=== PATIENT | male | born 1965 ===

== ENCOUNTER 2017-09-29 18:30 | Emergency (ER) | payer OTHER ==
[2017-09-29] MEDS ORDERED: Alum-Mag Hydrox-Simethicone Susp (30 mL) PO STA (18:46)
[2017-09-29] MEDS ORDERED: Alum-Mag Hydrox-Simethicone Susp (30 mL) ONE (18:51)
[2017-09-29] MEDS ORDERED: Sodium Chloride 0.9% 1,000 ML IV STA (19:08)
[2017-09-29 19:13] LABS: BASO % 0.3 % (0.0-2.0); EOS % 0.4 % (0.0-4.0); HEMOGLOBIN 17.4 g/dL (12.0-18.0); LYMPH # 0.7 K/uL (1.0-4.3); MEAN CELL VOLUME 87.5 fl (80.0-94.0); MEAN CORPUSCULAR HEMOGLOBIN 30.5 pg (27.0-31.0); MEAN CORPUSCULAR HGB CONC 34.9 g/dL (33.0-37.0); MEAN PLATELET VOLUME 6.7 fl (7.2-11.7); MONO # 0.6 K/uL (0.0-0.8); MONO % 6.2 % (0.0-10.0); NEUT # 8.6 K/uL (1.8-7.0); NEUT % 86.1 % (50.0-75.0); NRBC % 0.8 % (0.0-0.0); PLATELET COUNT 207 K/uL (130-400); RBC 5.71 Mil/uL (4.40-5.90); RED CELL DISTRIBUTION WIDTH 13.2 % (11.5-14.5)
--- NOTE | 2017-09-29 19:17 | ED PDOC ---
HPI: Abdomen Time Seen by Provider: 09/29/17 18:35 Chief Complaint (Nursing): Abdominal Pain Chief Complaint (Provider): Epigastric pain History Per: Patient History/Exam Limitations: no limitations Onset/Duration Of Symptoms: Days Outside of [place] travel?: No Current Symptoms Are (Timing): Still Present Location Of Pain/Discomfort: Epigastric Quality Of Discomfort: Sharp, Burning Associated Symptoms: Fever (Last night, no temperature taken at home ), Loss Of Appetite. denies: Constipation, Urinary Symptoms Exacerbating Factors: None Alleviating Factors: None Last Bowel Movement: Today Additional Complaint(s): No similar in the past. No chest pain. No SOB. Past Medical History Reviewed: Historical Data, Nursing Documentation, Vital Signs Vital Signs: Last Vital Signs Temp 100.4 F H 09/29/17 19:40 Pulse 99 H 09/29/17 19:21 Resp 16 09/29/17 19:21 BP 146/95 H 09/29/17 19:21 Pulse Ox 95 09/29/17 19:21 - Medical History PMH: No Chronic Diseases - Surgical History Surgical History: No Surg Hx - Family History Family History: States: No Known Family Hx - Living Arrangements Living Arrangements: With Family - Allergies Allergies/Adverse Reactions: Allergies Allergy/AdvReac Type Severity Reaction Status Date / Time No Known Allergies Allergy Verified 08/27/14 03:09 Review of Systems ROS Statement: Except As Marked, All Systems Reviewed And Found Negative Constitutional: Positive for: Fever (Last night, did not take temperature ). Negative for: Chills Gastrointestinal: Positive for: Nausea, Vomiting, Abdominal Pain Genitourinary Male: Negative for: Dysuria, Hematuria, Penile Discharge Physical Exam - Reviewed Nursing Documentation Reviewed: Yes Vital Signs Reviewed: Yes - Physical Exam Appears: Positive for: Well, Non-toxic, No Acute Distress Head Exam: Positive for: ATRAUMATIC, NORMAL INSPECTION, NORMOCEPHALIC Skin: Positive for: Normal Color, Warm, DRY Eye Exam: Positive for: Normal appearance ENT: Positive for: Normal ENT Inspection Neck: Positive for: Normal, Painless ROM Cardiovascular/Chest: Positive for: Regular Rate, Rhythm Respiratory: Positive for: Normal Breath Sounds. Negative for: Accessory Muscle Use, Respiratory Distress Gastrointestinal/Abdominal: Positive for: Normal Exam, Bowel Sounds, Soft. Negative for: Tenderness, Guarding, Rebound Back: Positive for: Normal Inspection Extremity: Positive for: Normal ROM Neurologic/Psych: Positive for: Alert, Oriented - Laboratory Results Result Diagrams: 09/29/17 19:07 09/29/17 19:07 Disposition - Clinical Impression Clinical Impression: Abdominal pain - Patient ED Disposition Is Patient to be Admitted: Transfer of Care Counseled Patient/Family Regarding: Diagnosis, Need For Followup - Disposition Disposition: Transfer of Care Disposition Time: 20:06 Condition: STABLE Forms: [employer] (Hungarian)
[2017-09-29 19:22] VITALS: RESP 16
[2017-09-29 19:22] LABS: ALB/GLOB RATIO 1.2 (1.0-2.1); ALBUMIN 4.4 g/dL (3.5-5.0); ALT/SGPT 51 U/L (21-72); AST/SGOT 43 U/L (17-59); BLOOD UREA NITROGEN 14 mg/dl (9-20); GFR AFRICAN-AMERICAN > 60; GFR NON-AFRICAN AMERICAN > 60; LIPASE 108 U/L (23-300)
[2017-09-29 19:35] LABS: SQUAMOUS EPITHIAL < 1 /hpf (0-5); URINE BACTERIA RARE (<OCC); URINE BILIRUBIN NEGATIVE (NEGATIVE); URINE BLOOD NEGATIVE (NEGATIVE); URINE CLARITY SLIGHTY-CLOUDY (Clear); URINE COLOR YELLOW (YELLOW); URINE GLUCOSE (UA) NEG (Normal); URINE LEUKOCYTE ESTERASE NEG Leu/uL (Negative); URINE PROTEIN 100 mg/dL (NEGATIVE); URINE UROBILINOGEN 0.2-1.0 mg/dL (0.2-1.0)
[2017-09-29] MEDS ORDERED: Potassium Chloride 10 mEq ER Tab PO STA (19:42)
[2017-09-29] MEDS ORDERED: Iohexol 300 100 ML IJ ONE (19:43)
[2017-09-29] MEDS ORDERED: Sodium Chloride 0.9% 100 ML ONE (19:44)
[2017-09-29] MEDS ORDERED: Potassium Chloride 10 mEq ER Tab PO ONE (20:24)
[2017-09-29 21:10] VITALS: BP 129/88; PULSE 91; TEMP 98.2; O2SAT 97
[2017-09-29 21:10] LABS: LYMPHOCYTE 9 % (20-50); MONOCYTE 6 % (0-10); NEUTROPHIL 84 % (42-75); REACTIVE LYMPHOCYTES 1 % (0-0); TOTAL CELLS COUNTED 100
[2017-09-29 21:11] LABS: PLATELET ESTIMATE NORMAL (NORMAL)
--- NOTE | 2017-09-29 21:20 | CT ---
EXAM: CT Abdomen and Pelvis With Intravenous Contrast EXAM DATE/TIME: 09/29/2017 7:33 PM CLINICAL HISTORY: 52 years old, male; Pain and signs and symptoms; Fever and vomiting; Abdominal pain; Epigastric; Additional info: Abdominal pain, fever TECHNIQUE: Axial computed tomography images of the abdomen and pelvis with intravenous contrast. All CT scans at this facility use one or more dose reduction techniques, viz.: automated exposure control; ma/kV adjustment per patient size (including targeted exams where dose is matched to indication; i.e. head); or iterative reconstruction technique. Coronal and sagittal reformatted images were created and reviewed. CONTRAST: 95 mL of [id number] administered intravenously. COMPARISON: Prior CT abdomen and pelvis of 2012-01-26 15:54 FINDINGS: LOWER THORAX: Small hiatal hernia. ABDOMEN: LIVER: No acute abnormality of the liver identified. GALLBLADDER AND BILE DUCTS: No CT evidence of acute cholecystitis. No evidence of significant biliary ductal dilatation. PANCREAS: No CT evidence of acute pancreatitis. SPLEEN: 1.7 cm round, enhancing lesion in the spleen, of uncertain etiology. This is likely solid in nature, and it appears hypervascular. No evidence of diffuse splenic lesions. Spleen is mildly enlarged, measuring 13 cm in length. ADRENALS: No acute abnormality of the adrenal glands identified. KIDNEYS AND URETERS: Incidental fluid density right renal lesion, measuring less than 10 mm. Consistent with the [employer]?s Incidental Findings Committee Report (J Am Hussein Radiol 2010): Unless the patient?s specific circumstances suggest otherwise, any cystic kidney lesion less than 1.0 cm not otherwise characterized in this report as possessing suspicious or indeterminate imaging features is/are highly likely to be benign and do not require follow-up imaging or biopsy. No acute abnormality of the kidneys identified. STOMACH AND BOWEL: Wall thickening and fold thickening involving the stomach, mild in degree. This could be due to incomplete distention versus mild gastritis. Bowel is otherwise unremarkable in appearance. No evidence of bowel obstruction. APPENDIX: Appendix is seen, and is within normal limits in appearance. PELVIS: BLADDER: No acute abnormality of the bladder identified. REPRODUCTIVE: Prostate gland is mildly enlarged. ABDOMEN and PELVIS: INTRAPERITONEAL SPACE: No evidence of free intraperitoneal air or fluid. BONES/JOINTS: No acute fractures or other acute bony abnormality noted. SOFT TISSUES: No acute abnormality of the visualized soft tissues is seen. VASCULATURE: No evidence of abdominal aortic aneurysm. No evidence of periaortic hemorrhage. LYMPH NODES: No evidence of diffuse lymphadenopathy. IMPRESSION: - Findings in the stomach which could be due to mild gastritis versus incomplete gastric distention. Recommend clinical correlation. - Otherwise, no evidence of significant acute process. - Incidental enhancing splenic lesion. This could represent a hemangioma, but it is indeterminate on this exam. This lesion could potentially be further evaluated with non-emergent followup MRI, as clinically indicated. No evidence of diffuse splenic lesions. - See above for remaining findings.
--- NOTE | 2017-09-29 21:28 | ED PDOC ---
- Laboratory Results Result Diagrams: 09/29/17 19:07 09/29/17 19:07 - ECG O2 Sat by Pulse Oximetry: 97 - Progress ED Course And Treament: Case endorsed to va underwriter from Madhavi FOLEY pending labs, CT EXAM CT Abdomen and Pelvis With Intravenous Contrast EXAM DATE/TIME: 09/29/2017 7:33 PM CLINICAL HISTORY: 52 years old, male; Pain and signs and symptoms; Fever and vomiting; Abdominal pain; Epigastric; Additional info: Abdominal pain, fever TECHNIQUE: Axial computed tomography images of the abdomen and pelvis with intravenous contrast. All CT scans at this facility use one or more dose reduction techniques, viz.: automated exposure control; ma/kV adjustment per patient size (including targeted exams where dose is matched to indication; i.e. head); or iterative reconstruction technique. Coronal and sagittal reformatted images were created and reviewed. CONTRAST: 95 mL of [id number] administered intravenously. COMPARISON: Prior CT abdomen and pelvis of 2012-01-26 15:54 FINDINGS: LOWER THORAX: Small hiatal hernia. ABDOMEN: LIVER: No acute abnormality of the liver identified. GALLBLADDER AND BILE DUCTS: No CT evidence of acute cholecystitis. No evidence of significant biliary ductal dilatation. PANCREAS: No CT evidence of acute pancreatitis. SPLEEN: 1.7 cm round, enhancing lesion in the spleen, of uncertain etiology. This is likely solid in nature, and it appears hypervascular. No evidence of diffuse splenic lesions. Spleen is mildly enlarged, measuring 13 cm in length. ADRENALS: No acute abnormality of the adrenal glands identified. KIDNEYS AND URETERS: Incidental fluid density right renal lesion, measuring less than 10 mm. Consistent with the [employer]'s Incidental Findings Committee Report (J Am Hussein Radiol 2010): Unless the patient's specific circumstances suggest otherwise , any cystic kidney lesion less than 1.0 cm not otherwise characterized in this report as possessing suspicious or indeterminate imaging features is/are highly likely to be benign and do not require follow-up imaging or biopsy. No acute abnormality of the kidneys identified. STOMACH AND BOWEL: Wall thickening and fold thickening involving the stomach, mild in degree. This could be due to incomplete distention versus mild gastritis. Bowel is otherwise unremarkable in appearance. No evidence of bowel obstruction. APPENDIX: Appendix is seen, and is within normal limits in appearance. PELVIS: BLADDER: No acute abnormality of the bladder identified. REPRODUCTIVE: Prostate gland is mildly enlarged. ABDOMEN and PELVIS: INTRAPERITONEAL SPACE: No evidence of free intraperitoneal air or fluid. BONES/JOINTS: No acute fractures or other acute bony abnormality noted. SOFT TISSUES: No acute abnormality of the visualized soft tissues is seen. VASCULATURE: No evidence of abdominal aortic aneurysm. No evidence of periaortic hemorrhage. LYMPH NODES: No evidence of diffuse lymphadenopathy. IMPRESSION: - Findings in the stomach which could be due to mild gastritis versus incomplete gastric distention. Recommend clinical correlation. - Otherwise, no evidence of significant acute process. - Incidental enhancing splenic lesion. This could represent a hemangioma, but it is indeterminate on this exam. This lesion could potentially be further evaluated with non-emergent followup MRI, as clinically indicated. No evidence of diffuse splenic lesions. - See above for remaining findings. On re-eval, patient resting comfortably, states he is feeling better. Tolerating PO. Patient educated on findings, discharged with rx Tamiflu (dose given in ED), Zofran, Nexium Advised fluids. Rest. Tylenol/Ibuprofen PRN fever. Follow up [facility]. Return precautions given. Disposition - Clinical Impression Clinical Impression: Viral syndrome, Gastritis - POA Present On Arrival: None - Disposition Referrals: [facility] [Outside] Disposition: Routine/Home Disposition Time: 21:47 Condition: IMPROVED Prescriptions: Esomeprazole Magnesium [Nexium] 40 mg PO DAILY #10 capsule. Ondansetron ODT [Zofran ODT] 4 mg PO Q8 PRN #10 odt PRN Reason: Nausea/Vomiting Oseltamivir [Tamiflu] 75 mg PO BID #9 cap Instructions: Gastritis (DC), Viral Syndrome (DC) Forms: [employer] (Upper Sorbian) Print Language: IRISH
--- NOTE | 2017-09-30 12:11 | CARD ---
APPROVED REPORT EKG Measurement Heart [id number] <Conclusion> Sinus tachycardia Possible Left atrial enlargement Cannot rule out Anterior infarct, age undetermined Abnormal ECG
== END 2017-09-29 23:24 | disposition home or self-care (01) ==
LOC: H.ER 18:30
DX: K29.70 Gastritis, unspecified, without bleeding (principal); B34.9 Viral infection, unspecified; R50.9 Fever, unspecified
CPT/HCPCS: 74177; 80053; 81003; 83690; 85025; 87086; 87804; 93005; 99284; J2405; J3480; J7040; Q9967

== ENCOUNTER 2018-01-17 21:42 | Emergency (ER) | payer SELFPAY ==
[2018-01-17 22:04] VITALS: RESP 16; TEMP 98.8
[2018-01-17 23:08] LABS: BASO # 0.1 K/uL (0.0-0.2); BASO % 1.4 % (0.0-2.0); EOS # 0.1 K/uL (0.0-0.7); EOS % 1.9 % (0.0-4.0); HEMOGLOBIN 17.2 g/dL (12.0-18.0); LYMPH # 1.5 K/uL (1.0-4.3); LYMPH % 21.3 % (20.0-40.0); MEAN CELL VOLUME 88.5 fl (80.0-94.0); MEAN CORPUSCULAR HEMOGLOBIN 30.4 pg (27.0-31.0); MEAN CORPUSCULAR HGB CONC 34.3 g/dL (33.0-37.0); MEAN PLATELET VOLUME 6.8 fl (7.2-11.7); MONO # 0.5 K/uL (0.0-0.8); MONO % 6.9 % (0.0-10.0); NEUT # 4.9 K/uL (1.8-7.0); NEUT % 68.5 % (50.0-75.0); RBC 5.66 Mil/uL (4.40-5.90); RED CELL DISTRIBUTION WIDTH 13.6 % (11.5-14.5); WHITE BLOOD COUNT 7.1 K/uL (4.8-10.8)
[2018-01-17 23:16] LABS: ALB/GLOB RATIO 1.1 (1.0-2.1); ALBUMIN 4.1 g/dL (3.5-5.0); ALT/SGPT 29 U/L (21-72); AST/SGOT 28 U/L (17-59); BLOOD UREA NITROGEN 15 mg/dl (9-20); CALCIUM 8.9 mg/dL (8.4-10.2); GFR AFRICAN-AMERICAN > 60; GFR NON-AFRICAN AMERICAN > 60
[2018-01-17] MEDS ORDERED: Potassium Chloride 20 mEq/15 ml LIQ UD PO ONE (23:24)
--- NOTE | 2018-01-17 23:44 | ED PDOC ---
HPI: Headache Time Seen by Provider: 01/17/18 22:06 Chief Complaint (Nursing): High Blood Pressure Chief Complaint (Provider): headache History Per: Patient History/Exam Limitations: no limitations Onset/Duration Of Symptoms: Hrs (this morning), Waxing/Waning, Gradual Current Symptoms Are (Timing): Still Present Quality: "Pain" Preceeding Symptoms: None Associated Symptoms: Nausea Additional Complaint(s): Darinel Rust is a 52 year old male, with no significant past medical history, who presents to the emergency department complaining of headache onset since this morning. Patient states he woke up this morning with a mild headache which has gradually progressed and waxes & wanes in intensity. Patient reports its mostly localized to the forehead and associated with nausea. He took Motrin 400mg at 20:00 with mild improvement of headache. He denies any history of similar headaches or migraines. Otherwise no dizziness, fever, chills, vomiting , trauma injury, URI symptoms, chest pain or shortness of breath. Of note blood pressure is elevated 160/104 in triage but denies any history of hypertension. No further medical complaints. PMD: Christian Agrawal Past Medical History Reviewed: Historical Data, Nursing Documentation, Vital Signs Vital Signs: Last Vital Signs Temp 98.8 F 01/17/18 22:01 Pulse 65 01/17/18 22:54 Resp 16 01/17/18 22:01 BP 151/112 H 01/17/18 22:54 Pulse Ox 98 01/17/18 22:01 - Medical History PMH: No Chronic Diseases - Surgical History Surgical History: No Surg Hx - Family History Family History: States: No Known Family Hx - Social History Current smoker - smoking cessation education provided: No - Home Medications Home Medications: Ambulatory Orders Medication Instructions Recorded Esomeprazole Magnesium [Nexium] 40 mg PO DAILY #10 nancy. 09/29/17 Ondansetron ODT [Zofran ODT] 4 mg PO Q8 PRN #10 odt 09/29/17 Oseltamivir [Tamiflu] 75 mg PO BID #9 cap 09/29/17 amLODIPine [Norvasc] 5 mg PO DAILY #30 tab 01/18/18 - Allergies Allergies/Adverse Reactions: Allergies Allergy/AdvReac Type Severity Reaction Status Date / Time No Known Allergies Allergy Verified 08/27/14 03:09 Review of Systems ROS Statement: Except As Marked, All Systems Reviewed And Found Negative Constitutional: Negative for: Fever, Chills ENT: Negative for: Nose Congestion Cardiovascular: Negative for: Chest Pain Respiratory: Negative for: Cough, Shortness of Breath Gastrointestinal: Positive for: Nausea. Negative for: Vomiting Neurological: Positive for: Headache. Negative for: Dizziness Physical Exam - Reviewed Nursing Documentation Reviewed: Yes Vital Signs Reviewed: Yes - Physical Exam Comments: GENERAL APPEARANCE: Patient is awake, alert, oriented x 3, in no acute distress. Smiling and comfortable SKIN: Warm, dry; (-) cyanosis; (-) rash. HEAD: (-) scalp swelling or tenderness, (-) temporal artery tenderness. EYES: (-) conjunctival pallor, (-) scleral icterus. ENMT: (-) sinus tenderness; mucous membranes are moist. NECK: (-) tenderness, (-) stiffness, (-) meningismus, (-) lymphadenopathy. CHEST AND RESPIRATORY: (-) rales, (-) rhonchi, (-) wheezes; breath sounds equal bilaterally. HEART AND CARDIOVASCULAR: (-) irregularity; (-) murmur, (-) gallop. ABDOMEN AND GI: Soft; (-) tenderness. EXTREMITIES: (-) deformity. NEURO AND PSYCH: Mental status as above. 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 Strength symmetric. Gait steady. - Laboratory Results Result Diagrams: 01/17/18 23:04 01/17/18 23:04 - ECG O2 Sat by Pulse Oximetry: 98 (RA) Pulse Ox Interpretation: Normal Medical Decision Making Medical Decision Making: Time: 22:06 Initial Impression: headache Initial Plan: --EKG --CMP --Troponin I --Urine dipstick --CBC w/ differential --PTT --PT --Chest two views (PA/LAT) [RAD] --Norvasc 5 mg PO --Potassium Chloride Oral SOln 40 meq PO --Tylenol 325 mg tab 975 mg PO --Reevaluation EKG : NSR at 60 bpm, no acute ST changes, as read by PA CXR : NAD, as read by PA Labs reviewed : K 2.9. KCL 40 mEq PO ordered x2. Udip +trace protien, (-) nitrate/leuks On re-evaluation, patient reports improvement of symptoms, denies any headache, dizziness, CP or SOB. On exam, patient remains AAOx3, is smiling, in no acute distress. Repeat neuro exam shows no focal findings. VS BP 143/63 P 60 O2sat 97% RA. Diagnostic results d/w the patient in great detail. Diagnosis of HTN d/w the patient. Based on history, exam and diagnostic results, plan will be for outpatient follow up. Patient feels comfortable going home. Patient instructed to follow-up with pmd or the clinic in 1-2 days without fail. Advised to take medication as prescribed. Return to the emergency room at any time for any new or worsening symptoms. Patient states he fully agrees with and understands discharge instructions. States that he agrees with the plan and disposition. Verbalized and repeated discharge instructions and plan. I have given the patient opportunity to ask any additional questions. ----- Scribe Attestation: Documented by Mayco Roberts, acting as a scribe for Yajaira Hester PA-C. Provider Scribe Attestation: All medical record entries made by the Scribe were at my direction and personally dictated by me. I have reviewed the chart and agree that the record accurately reflects my personal performance of the history, physical exam, medical decision making, and the department course for this patient. I have also personally directed, reviewed, and agree with the discharge instructions and disposition. Disposition - Clinical Impression Clinical Impression: Headache, Hypertension - Patient ED Disposition Is Patient to be Admitted: No Counseled Patient/Family Regarding: Studies Performed, Diagnosis, Need For Followup, Rx Given - Disposition Referrals: [facility] [Outside] Disposition: Routine/Home Disposition Time: 01:00 Condition: IMPROVED Additional Instructions: Thank you for letting us take care of you today. You were treated for headache, hypertension. The emergency medical care you received today was directed at your acute symptoms. If you were prescribed any medication, please fill it and take as directed. It may take several days for your symptoms to resolve. Return to the Emergency Department if your symptoms worsen, do not improve, or if you have any other problems. Please contact your doctor or the clinic in 2 days for re-evaluation and follow up. Bring any paperwork you were given at discharge with you along with any medications you are taking to your follow up visit. Our treatment cannot replace ongoing medical care by a primary care provider (PCP) outside of the emergency department. Thank you for allowing the [facility] team to be part of your care today. Prescriptions: amLODIPine [Norvasc] 5 mg PO DAILY #30 tab Instructions: DASH Diet, Headache, Adult, High Blood Pressure (DC) Forms: [email or web address] (Cape Verdean) Print Language: YORUBA - PA / SOCIAL WELFARE ADMINISTRATOR / Resident Statement / has reviewed & agrees with the documentation as recorded.
[2018-01-18 00:22] LABS: PARTIAL THROMBOPLASTIN TIME 29.6 Seconds (25.6-37.1); PROTHROMBIN TIME 11.1 Seconds (9.8-13.1)
[2018-01-18] MEDS ORDERED: Potassium Chloride 20 mEq/15 ml LIQ UD PO ONE (00:25)
[2018-01-18 00:28] VITALS: BP 143/93; PULSE 60
[2018-01-18 01:40] VITALS: O2SAT 98
--- NOTE | 2018-01-18 10:08 | RAD ---
HISTORY: high bp COMPARISON: 10/21/2013 TECHNIQUE: Chest PA and lateral FINDINGS: LUNGS: No active pulmonary disease. PLEURA: No significant pleural effusion identified. No pneumothorax apparent. CARDIOVASCULAR: Normal. OSSEOUS STRUCTURES: No significant abnormalities. VISUALIZED UPPER ABDOMEN: Normal. OTHER FINDINGS: None. IMPRESSION: No active disease.
--- NOTE | 2018-01-18 16:51 | CARD ---
APPROVED REPORT EKG Measurement Heart [id number] <Conclusion> Normal sinus rhythm Nonspecific T wave abnormality Abnormal ECG
== END 2018-01-18 02:07 | disposition home or self-care (01) ==
LOC: H.ER 21:42
DX: R51 Headache (principal); I10 Essential (primary) hypertension

== ENCOUNTER 2018-03-01 09:42 | Emergency (ER) | payer SELFPAY ==
[2018-03-01 09:47] VITALS: TEMP 97.4; O2SAT 97
[2018-03-01 09:48] VITALS: BMI 27.9
[2018-03-01] MEDS ORDERED: Naproxen 500 MG TAB PO STA (10:14)
--- NOTE | 2018-03-01 10:22 | ED PDOC ---
Upper Extremity Pain/Injury Time Seen by Provider: 03/01/18 10:00 Chief Complaint (Nursing): Upper Extremity Problem/Injury Chief Complaint (Provider): right shoulder pain History Per: Patient History/Exam Limitations: no limitations Onset/Duration Of Symptoms: Days (x30) Current Symptoms Are (Timing): Still Present Quality: "Pain" Additional Complaint(s): Darinel Rust is a 52 year old male, with no significant past medical history, who presents to the emergency department complaining of right shoulder pain that radiates down the arm onset for x30 days. 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 Patient states pain is exacerbated with heavy lifting. He also reports falling on his right side last time it snowed, but did not seek medical attention at the time. He denies any other medical complaints. PMD: None provided. Past Medical History Reviewed: Historical Data, Nursing Documentation, Vital Signs Vital Signs: Last Vital Signs Temp 97.4 F L 03/01/18 09:46 Pulse 67 03/01/18 09:46 Resp BP 154/95 H 03/01/18 09:46 Pulse Ox 97 03/01/18 09:46 - Medical History PMH: No Chronic Diseases - Surgical History Surgical History: No Surg Hx - Family History Family History: States: Unknown Family Hx - Social History Current smoker - smoking cessation education provided: No Alcohol: None Drugs: Denies - Home Medications Home Medications: Ambulatory Orders Medication Instructions Recorded Esomeprazole Magnesium [Nexium] 40 mg PO DAILY #10 capsule. 09/29/17 Ondansetron ODT [Zofran ODT] 4 mg PO Q8 PRN #10 odt 09/29/17 Oseltamivir [Tamiflu] 75 mg PO BID #9 cap 09/29/17 amLODIPine [Norvasc] 5 mg PO DAILY #30 tab 01/18/18 Naproxen [Naprosyn] 500 mg PO BID PRN #15 tablet 03/01/18 - Allergies Allergies/Adverse Reactions: Allergies Allergy/AdvReac Type Severity Reaction Status Date / Time No Known Allergies Allergy Verified 08/27/14 03:09 Review of Systems ROS Statement: Except As Marked, All Systems Reviewed And Found Negative Musculoskeletal: Positive for: Shoulder Pain (right), Arm Pain Physical Exam - Reviewed Nursing Documentation Reviewed: Yes Vital Signs Reviewed: Yes - Physical Exam Appears: Positive for: No Acute Distress Head Exam: Positive for: ATRAUMATIC, NORMAL INSPECTION, NORMOCEPHALIC Skin: Positive for: Normal Color, Warm, Dry Eye Exam: Positive for: Normal appearance Neck: Positive for: Painless ROM Extremity: Positive for: Normal ROM (upper extremities), Tenderness (to right posterior scapula and right lateral superior shoulder. Pain w/ movement.). Negative for: Deformity (no crepitus), Swelling Neurologic/Psych: Positive for: Alert, Oriented - ECG O2 Sat by Pulse Oximetry: 97 (RA) Pulse Ox Interpretation: Normal Medical Decision Making Medical Decision Making: Time: 10:00 Initial Impression: Right shoulder pain Initial Plan: --Naprosyn 500 mg PO --Shoulder right [RAD] --Reevaluation 11:10 -Shoulder xray negative, read by me. ----- Scribe Attestation: Documented by Mayco Roberts, acting as a scribe for Angeli Castro MD. Provider Scribe Attestation: All medical record entries made by the Scribe were at my direction and personally dictated by me. I have reviewed the chart and agree that the record accurately reflects my personal performance of the history, physical exam, medical decision making, and the department course for this patient. I have also personally directed, reviewed, and agree with the discharge instructions and disposition. Disposition - Clinical Impression Clinical Impression: Musculoskeletal pain - Disposition Referrals: [facility] [Outside] Disposition: Routine/Home Disposition Time: 11:00 Condition: STABLE Prescriptions: Naproxen [Naprosyn] 500 mg PO BID PRN #15 tablet PRN Reason: Pain, Moderate (4-7) Instructions: Muscle and Bone Pain (DC) Forms: [employer] (Malay) Print Language: FIJIAN
[2018-03-01] MEDS ORDERED: Naproxen 500 MG TAB PO ONE (10:24)
[2018-03-01 11:33] VITALS: BP 148/90; PULSE 70; RESP 18
--- NOTE | 2018-03-01 12:16 | RAD ---
Date of service: 03/01/2018 PROCEDURE: Radiographs of the Right Shoulder HISTORY: Shoulder pain COMPARISON: No prior. FINDINGS: BONES: Normal. No fracture. JOINTS: Normal. Glenohumeral and acromioclavicular joints preserved. No osteoarthritis. SOFT TISSUES: Normal. OTHER FINDINGS: None. IMPRESSION: No acute findings related to/accounting for the clinical presentation. Concordant results with the preliminary interpretation rendered by the emergency department physician procedure.
== END 2018-03-01 11:25 | disposition home or self-care (01) ==
LOC: H.ER 09:42
DX: M25.511 Pain in right shoulder (principal)

== ENCOUNTER 2018-08-08 13:57 | Emergency (ER) | payer SELFPAY ==
[2018-08-08 13:57] VITALS: BMI 27.9
[2018-08-08 14:10] VITALS: BP 160/99; PULSE 68; RESP 19; TEMP 98.5; O2SAT 98
--- NOTE | 2018-08-08 14:27 | ED PDOC ---
HPI: Influenza Time Seen by Provider: 08/08/18 14:13 Chief Complaint: Cough, Cold, Congestion Chief Complaint (Provider): Cough, Cold, Congestion History Per: Patient Exam Limitations: no limitations Onset/Duration Of Symptoms: Days (8x) Symptoms include: fever (tactile), cough (yellow green sputum) Additional complaint(s):: 52 year old male with no pertinent past medical history presents to the ED for an evaluation of a cough productive of yellow/green sputum ongoing for 8x days associated with a tactile fever. Patient denies taking medications for symptoms. Patient denies having chest pain, shortness of breath, hemoptysis, sick contacts, and recent travel. PMD: None provided. Past Medical History Reviewed: Historical Data, Nursing Documentation, Vital Signs Vital Signs: Last Vital Signs Temp 98.5 F 08/08/18 14:06 Pulse 68 08/08/18 14:06 Resp 19 08/08/18 14:06 BP 160/99 H 08/08/18 14:06 Pulse Ox 98 08/08/18 14:06 ANTONIO Report Viewed: Yes - Medical History PMH: No Chronic Diseases - Family History Family History: States: No Known Family Hx - Social History Current smoker - smoking cessation education provided: No Alcohol: None Drugs: Denies - Home Medications Home Medications: Ambulatory Orders Medication Instructions Recorded Esomeprazole Magnesium [Nexium] 40 mg PO DAILY #10 capsule. 09/29/17 Ondansetron ODT [Zofran ODT] 4 mg PO Q8 PRN #10 odt 09/29/17 Oseltamivir Cap [Tamiflu] 75 mg PO BID #9 cap 09/29/17 amLODIPine [Norvasc] 5 mg PO DAILY #30 tab 01/18/18 Naproxen [Naprosyn] 500 mg PO BID PRN #15 tablet 03/01/18 Azithromycin [Zithromax] 250 mg PO DAILY #6 tab 08/08/18 Benzonatate [Tessalon Perle] 1 - 2 cap PO Q8 PRN #30 capsule 08/08/18 - Allergies Allergies/Adverse Reactions: Allergies Allergy/AdvReac Type Severity Reaction Status Date / Time No Known Allergies Allergy Verified 08/27/14 03:09 Review of Systems ROS Statement: Except As Marked, All Systems Reviewed And Found Negative Constitutional: Positive for: Fever (tactile) Cardiovascular: Negative for: Chest Pain Respiratory: Positive for: Cough, Sputum (yellow/green). Negative for: Shortness of Breath, Hemoptysis Physical Exam - Reviewed Nursing Documentation Reviewed: Yes Vital Signs Reviewed: Yes - Physical Exam Appears: Positive for: Well, Non-toxic, No Acute Distress Head Exam: Positive for: ATRAUMATIC, NORMOCEPHALIC Skin: Positive for: Normal Color, Warm, Dry Eye Exam: Positive for: Normal appearance, EOMI, PERRL ENT: Positive for: Normal ENT Inspection Cardiovascular/Chest: Positive for: Regular Rate, Rhythm Respiratory: Positive for: Normal Breath Sounds Neurologic/Psych: Positive for: Alert, Oriented (3x) Medical Decision Making Medical Decision Makin:13 Initial impression: 52 year old male with a cough. Scribe Attestation: Documented byNataly Coleman, acting as a scribe for Chuy Okeefe Provider Scribe Attestation: All medical record entries made by the Scribe were at my direction and personally dictated by me. I have reviewed the chart and agree that the record accurately reflects my personal performance of the history, physical exam, medical decision making, and the department course for this patient. I have also personally directed, reviewed, and agree with the discharge instructions and disposition. - ECG O2 Sat by Pulse Oximetry: 98 (RA) Pulse Ox Interpretation: Normal Disposition - Clinical Impression Clinical Impression: Acute bronchitis - Patient ED Disposition Is Patient to be Admitted: No - Disposition Referrals: [facility] [Outside] Disposition: Routine/Home Disposition Time: 14:25 Condition: STABLE Additional Instructions: FOLLOW UP WITH PMD FOR FURTHER EVALUATION RETURN TO ED IMMEDIATELY IF SYMPTOMS WORSEN CHITRA BURT, thank you for letting us take care of you today. Your provider was Reggie Emmanuel MD and you were treated for FEVER/COUGH. The emergency medical care you received today was directed at your acute symptoms. If you were prescribed any medication, please fill it and take as directed. It may take several days for your symptoms to resolve. Return to the Emergency Department if your symptoms worsen, do not improve, or if you have any other problems. Please contact your doctor or call one of the physicians/clinics you have been referred to that are listed on the Patient Visit Information form that is included in your discharge packet. Bring any paperwork you were given at discharge with you along with any medications you are taking to your follow up visit. Our treatment cannot replace ongoing medical care by a primary care provider outside of the emergency department. Thank you for allowing the [facility] team to be part of your care today. If you had an X-Ray or CT scan: A Radiologist will review the ED reading if any change in treatment is needed we will contact you. If you had a blood, urine, or wound culture: It will take several days for the results, if any change in treatment is needed we will contact you. If you had an STI test: It will take 48 hours for the results. Please call after 1 week if you have not heard back. Prescriptions: Azithromycin [Zithromax] 250 mg PO DAILY #6 tab Benzonatate [Tessalon Perle] 1 - 2 cap PO Q8 PRN #30 capsule PRN Reason: Cough Instructions: Acute Bronchitis, Adult (DC) Print Language: ESTONIAN
== END 2018-08-08 14:41 | disposition home or self-care (01) ==
LOC: H.ER 13:57
DX: J20.9 Acute bronchitis, unspecified (principal)